=== PATIENT | female | born 1945 | race Hispanic/Latino ===

== ENCOUNTER 2018-02-04 11:00 | Emergency (ER) | payer OTHER ==
[~2018-02-04] VITALS: Ht 154.9 cm; Wt 60.8 kg
--- OUTSIDE RECORDS SUMMARY | 2018-02-04 11:02 | XMS REPORT | Clinical Summary ---
Author Author [facility] Address Unknown Phone Unavailable Care Team Providers Care Label Rewinder Name Role Phone Asked, None Given PCP Unavailable Allergies No Known Allergies Medications End Date Status Medication Sig Dispensed Refills Start Date Active losartan-hydrochlorothiaz Take 1 tablet 0 vick (HYZAAR) 100-12.5 mg by mouth per tablet daily. Active atenolol (TENORMIN) 100 Take 100 mg 0 MG tablet by mouth daily. Active ondansetron ODT (ZOFRAN Take 1 tablet 12 tablet 0 ODT) 4 MG disintegrating (4 mg total) 6 tablet by mouth every 8 (eight) hours as needed for nausea or vomiting for up to 12 doses. Active Problems Not on file Social History Date Tobacco Use Types Packs/Day Years Used Never Smoker Alcohol Use Drinks/Week oz/Week Comments No Sex Assigned at Date Recorded Not on file Industry Job Start Date Occupation Not on file Not on file Not on file Travel End Travel History Travel Start No recent travel history available. Last Filed Vital Signs Not on file Plan of Treatment Health Maintenance Due Date Last Done Comments BREAST CANCER SCREENING 1996 COLON CANCER SCREENING 1996 SHINGRIX VACCINE (1 of 2) 1996 ZOSTER VACCINE 2006 PNEUMOCOCCAL 12/17/2011 POLYSACCHARIDE VACCINE AGE 65 AND OVER PNEUMOCOCCAL-13 12/17/2011 INFLUENZA VACCINE 10/05/2017 Results Not on fileafter 02/03/2017 Insurance Payer Benefit Subscriber ID Type Phone Address Plan / Group [facility] MEDICARE AARP xxxxxxxxx [facility] COM[facility]TE MCR (Home) [place] [address] Advance Directives Patient has advance care planning documents on file. For more information, padma mcdowell contact: Glenn Joe [address] [place] [address]
== END 2018-02-04 13:50 | disposition home or self-care (01) ==
LOC: FSED 11:00
DX: R21 Rash and other nonspecific skin eruption (principal); I10 Essential (primary) hypertension; D64.9 Anemia, unspecified
CPT/HCPCS: 99283

== ENCOUNTER 2018-10-24 15:02 | Emergency (ER) | payer MEDICARE, OTHER ==
[~2018-10-24] VITALS: Ht 154.9 cm; Wt 60.5 kg
--- OUTSIDE RECORDS SUMMARY | 2018-10-24 15:05 | XMS REPORT ---
Author Author [facility] Address Unknown Phone Unavailable Care Team Providers Care Metal Caster Name Role Phone Unavailable Unavailable Problems This patient has no known problems. Allergies, Adverse Reactions, Alerts This patient has no known allergies or adverse reactions. Medications This patient has no known medications.
--- OUTSIDE RECORDS SUMMARY | 2018-10-24 15:05 | XMS REPORT | Clinical Summary ---
Author Author [facility] Address Unknown Phone Unavailable Care Team Providers Care Automobile Accessories Salesperson Name Role Phone Graham Jacobson MD PCP Allergies No Known Allergies Medications End Date [...] 12 doses. 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 Last Filed Vital Signs Not on file Plan of Treatment Health Maintenance Due Date Last Done Comments BREAST CANCER SCREENING 1996 COLONOSCOPY SCREENING 1996 SHINGLES VACCINES (#1) 1996 65+ PNEUMOCOCCAL VACCINE 12/17/2011 (1 of 2 - PCV13) INFLUENZA VACCINE 10/05/2018 Procedures Comments Procedure Name Priority Date/Time Associated Diagnosis MRI BRAIN WO CONTRAST Routine 02/24/2018 Cerebral infarction due 2:35 PM KNOCKUP WORKER to thrombosis of vertebral artery, unspecified blood vessel laterality (HCC) ECHOCARDIOGRAM 2D Routine 02/24/2018 Cerebral infarction due COMPLETE W MMODE SPECTRAL 2:10 PM KNOCKUP WORKER to thrombosis of COLOR DOPPLER (29004) vertebral artery, unspecified blood vessel laterality (HCC) after 10/23/2017 Results * MRI Brain Wo Contrast (02/24/2018 2:35 PM KNOCKUP WORKER) Specimen Narrative Performed At [facility] EXAMINATION:MRI BRAIN WO CONTRAST CLINICAL HISTORY:I63.019 Cerebral infarction due to thrombosis of unspecified vertebral artery, I63.019 COMPARISON:CT of the head dated August 07, 2015 TECHNIQUE: Multiplanar MRI imaging without IV Gadolinium was performed. FINDINGS: There is generalized brain parenchymal atrophy with white matter nonspecific T2 hyperintensities most likely to represent microvascular chronic ischemic disease. There is slight nonspecific ventriculomegaly most likely related tocentral volume loss. There is incidental punctate focus of susceptibility in the right frontal white matter most likely related to small cavernous formation versus small dystrophic ossification. There is no evidence of acute infarction, hemorrhage, mass lesion, or midline shift. Ventricles, sulci, and cisterns are age-appropriate in size and configuration. There is no extra-axial fluid collection. Flow voids of the major intracranial vessels are intact. Visualized paranasal sinuses and mastoid air cells are clear. Bones, orbits, and soft tissues are unremarkable. IMPRESSION: No acute intracranial abnormality. [id number] Procedure Note Interface, Radiology Results Incoming - 02/24/2018 3:26 PM KNOCKUP WORKER EXAMINATION: MRI BRAIN WO CONTRAST CLINICAL HISTORY: I63.019 Cerebral infarction due to thrombosis of unspecified vertebral artery, I63.019 COMPARISON: CT of the head dated August 07, 2015 TECHNIQUE: Multiplanar MRI imaging without IV Gadolinium was performed. FINDINGS: There is generalized brain parenchymal atrophy with white matter nonspecific T2 hyperintensities most likely to represent microvascular chronic ischemic disease. There is slight nonspecific ventriculomegaly most likely related to central volume loss. There is incidental punctate focus of susceptibility in the right frontal white matter most likely related to small cavernous formation versus small dystrophic ossification. There is no evidence of acute infarction, hemorrhage, mass lesion, or midline shift. Ventricles, sulci, and cisterns are age-appropriate in size and configuration. There is no extra-axial fluid collection. Flow voids of the major intracranial vessels are intact. Visualized paranasal sinuses and mastoid air cells are clear. Bones, orbits, and soft tissues are unremarkable. IMPRESSION: No acute intracranial abnormality. [id number] Performing Organization Address City/State/Zipcode Phone Number [facility] [address] [place] [address] * Echocardiogram complete w contrast and 3D if needed (02/24/2018 2:10 PM KNOCKUP WORKER) Specimen Narrative Performed At [facility] Echocardiography Report [address] [place] [address] Pat.Name:FELIZ OSULLIVAN.ID:[id number] .Date: 02/24/2018Refer.MD:JOHANN GARZA Exam Time: 1:19:00 PMStudy Type:Routine Echo Height:61inWeight:138lb BSA: 1.61 m2 DOBAge:1945,72Y Sex: FEMALEBP:168/73 HR:50 bpm Sonogrphr: Mandi Lima RDCS, RVT; Lucero Mcginnis (student) Pat. 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 LV EF is normal. FINDINGS: LV: LV size is normal. LV EF is normal. Overall wall motion is normal.Estimated EF is 60-64%. RV: RV size is normal. RV systolic function is normal. LA: LA size is normal. RA: RA size is normal. AO: Aortic root diameter is normal. CHRISTO: No pericardial effusion. AV: Mild thickening and calcification of AV leaflets. MV: No structural MV abnormalities noted. Mild mitral regurgitation. PV: No structural PV abnormalities noted. A trace of pulmonic regurgitation. TV: No structural TV abnormalities noted. Mild tricuspid regurgitation Adkins: Normal diastolic function. Other:Estimated PA systolic pressure is 30 mmHg, assuming a mean RAPof 5 mmHg. MEASUREMENTS: 2D Parasternal Long [place] LVOT 1.7 cmLA Ds3.5 cm LVIDd5.4 cmIndex3.3 cm/m Ao An1.8 cm LVIDs2.9 cmAo Rtd 2.9 cm Index1.8 cm/m LV%fs 46.4 % LV Rafa447.5 g(87-129) IVSd 0.7 cmLVM Index 91.6 g/m2 LVPWd0.8 cmRWT0.3 LA Sng Plane LA Area 17 cm2(8.8-23.4) LA Vol44.7 ml Index27.8 ml/m LA LngAx 5.5 cm RA Sng Plane RA Area 18.3 cm2(8.3-19.5) RA Vol51.9 ml Index32.2 ml/m RA LngAx 5.1 cm DOPPLER LVOT Stroke Vol LVOT 1.7 cmLVOT CO3 l/min LVOT TVI28.5 cmLVOT CI1.9 l/m/m2 LVOT Tm372 csujOS17 bpm LVOT SV 64.8 ml Signed 02/25/2018 09:33 AM Lee Lewis MD Procedure Note Interface, Radiology Results In - 02/25/2018 9:34 AM KNOCKUP WORKER Echocardiography Report [address] [place] [address] Pat.Name: FELIZ OSULLIVAN Pat.ID: [id number] .Date: 02/24/2018 Refer.MD: JOHANN GARZA Exam Time: 1:19:00 PM Study Type:Routine Echo Height: 61in Weight: 138lb BSA: 1.61 m2 Age: 11 1945,72Y Sex: FEMALE BP: 168/73 HR: 50 bpm Sonogrphr: Mandi Lima RDCS, RVT; Lucero Mcginnis (student) Pat. 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 LV EF is normal. FINDINGS: LV: LV size is normal. LV EF is normal. Overall wall motion is normal. Estimated EF is 60-64%. RV: RV size is normal. RV systolic function is normal. LA: LA size is normal. RA: RA size is normal. AO: Aortic root diameter is normal. CHRISTO: No pericardial effusion. AV: Mild thickening and calcification of AV leaflets. MV: No structural MV abnormalities noted. Mild mitral regurgitation. PV: No structural PV abnormalities noted. A trace of pulmonic regurgitation. TV: No structural TV abnormalities noted. Mild tricuspid regurgitation Adkins: Normal diastolic function. Other: Estimated PA systolic pressure is 30 mmHg, assuming a mean RAP of 5 mmHg. MEASUREMENTS: 2D Parasternal Long [place] LVOT 1.7 cm LA Ds 3.5 cm LVIDd 5.4 cm Index 3.3 cm/m Ao An 1.8 cm LVIDs 2.9 cm Ao Rtd 2.9 cm Index 1.8 cm/m LV%fs 46.4 % LV Mass 147.5 g (87-129) IVSd 0.7 cm LVM Index 91.6 g/m2 LVPWd 0.8 cm RWT 0.3 LA Sng Plane LA Area 17 cm2 (8.8-23.4) LA Vol 44.7 ml Index 27.8 ml/m LA LngAx 5.5 cm RA Sng Plane RA Area 18.3 cm2 (8.3-19.5) RA Vol 51.9 ml Index 32.2 ml/m RA LngAx 5.1 cm DOPPLER LVOT Stroke Vol LVOT 1.7 cm LVOT CO 3 l/min LVOT TVI 28.5 cm LVOT CI 1.9 l/m/m2 LVOT Tm 372 msec HR 47 bpm LVOT SV 64.8 ml Signed 02/25/2018 09:33 AM Lee Lewis MD Performing Organization Address City/State[facility] Phone Number [facility] [address] [place] [address] after 10/23/2017 Insurance Type Payer Benefit Subscriber ID Effective Phone Address Plan / Dates Group O [employer] xxxxxxxxx 2017-Christine lloyd Advance Directives For more information, please contact: [phone] Worker Explanation Type Date Recorded Advance Directives, Living Will and Medical Power of Tools Administrator
[2018-10-24] MEDS ORDERED: SODIUM CHLORIDE 0.9% 50ML 50 ML ONE (15:24)
[2018-10-24] MEDS ORDERED: IOPAMIDOL 370 MG/ML 200 ML INFUS..BTL INJ ONE (15:25)
[2018-10-24] MEDS ORDERED: SODIUM CHLORIDE 0.9% 1000ML 1,000 ML IV SCH ×2 (15:30→18:49)
[2018-10-24] MEDS ORDERED: SODIUM CHLORIDE 0.9% 1000ML 1,000 ML ONE (15:49)
[2018-10-24] MEDS ORDERED: ATENOLOL100 MG (15:50)
[2018-10-24] MEDS ORDERED: LOSARTAN POTAS100 MG PO (15:50)
--- NOTE | 2018-10-24 17:00 | Diagnostic Imaging Report ---
CT of the abdomen and pelvis, with contrast, 10/24/2018. History: Lower abdominal pain. Comparison: None available. Technique: Multidetector CT scanning of the abdomen and pelvis was performed from the level of the lung bases to the inferior pubic rami after intravenous administration of contrast. Coronal and sagittal multiplanar reformations were obtained. RADIATION DOSE: Total DLP: 613 mGy*cm Dose modulation, iterative reconstruction, and/or weight based adjustment of the mA/kV was utilized to reduce the radiation dose to as low as reasonably achievable. Discussion: LUNG BASES: There is bilateral atelectasis. ABDOMEN: There is diffuse thickening of the gallbladder wall. A 10 mm round hypodensity is seen just medial to the gallbladder. The liver, biliary tree, spleen, pancreas, adrenal glands, and kidneys are normal. The hepatic vein, portal vein, and splenic vein are patent. The abdominal aorta is within normal limits for size. Evaluation of bowel is limited without oral contrast. There is no bowel dilatation. The appendix is visualized and is normal. Multiple diverticuli are seen within the sigmoid colon without evidence of adjacent inflammation. There is no evidence of adenopathy or free fluid. A ventral hernia is present containing a portion of the transverse colon. There is no bowel wall thickening or proximal bowel dilatation. PELVIS: The bladder is unremarkable. The uterus and adnexa are absent. There is no evidence of free fluid or adenopathy. BONES AND SOFT TISSUES: Degenerative changes are present throughout the lumbar spine without evidence of lytic or sclerotic lesion. IMPRESSION: 1. Gallbladder wall thickening with adjacent medial hyperdensity which may represent a stone in the region of the gallbladder neck. Recommend further evaluation with right upper quadrant ultrasound. 2. Colonic diverticulosis without evidence of diverticulitis. 3. Colon containing ventral hernia without evidence of bowel strangulation or obstruction. 4. Status post hysterectomy. Signed by: Shree Hensley on 10/24/2018 4:56 PM
[2018-10-24] MEDS ORDERED: ACETAMINOPHEN 325 MG TAB PO ONE ×2 (17:30)
--- NOTE | 2018-10-24 18:31 | Diagnostic Imaging Report ---
HISTORY: Abdominal pain ^[id number] ^1821 TECHNIQUE: Selected images from limited abdominal ultrasound provided for INTERPRETATION: COMPARISON: CT abdomen 1557 hours. FINDINGS: Pancreas: Not visualized due to bowel gas. Liver: Measures 13.9 cm in sagittal plane. The echotexture is increased. No mass in the visualized portions. Portal Vein: Measures 1.0 cm. Proper directional flow on spectral Doppler interrogation. Biliary Tree: Normal Gallbladder: Present and contains multiple gallstones. There is a gallstone in the neck measuring 2.9 cm and a gallstone in the fundus measuring 3.8 cm. There is no change in position of the gallstone in the neck on decubitus imaging. The gallbladder wall measures 4 mm. There is diffuse pericholecystic fluid. Sonographic Ventura sign is negative. CBD: 0.5 cm. Right Kidney: 9.4 cm in greatest length. The echotexture is normal. There is no evidence for mass. There is no collecting system dilatation or evidence of obstruction. No renal calculi evident. No adjacent free fluid or fluid collections. Visualized IVC and aorta are normal. There is no free fluid. IMPRESSION: 1. Cholelithiasis with impacted gallstone in the neck. Gallbladder wall thickening and pericholecystic fluid are suggestive of acute cholecystitis. No biliary ductal dilatation. 2. Steatosis. 3. Nonvisualization of the pancreas. Signed by: Dr. Melody Rodriguez MD on 10/24/2018 6:28 PM
[2018-10-24] MEDS ORDERED: MORPHINE SULFATE 2 MG/ML SYR 1ML IV PRN (19:00)
[2018-10-24] MEDS ORDERED: ONDANSETRON HCL INJ 2MG/ML 2ML 2 MG/ML VIAL IV PRN (19:00)
[2018-10-24] MEDS ORDERED: PIPER-TAZ 3.375 GM 50 ML IV SCH (19:00)
[2018-10-24] MEDS ORDERED: MORPHINE SULFATE INJ 4 MG/ML INJ 1ML IV PRN (19:15)
[2018-10-24] MEDS ORDERED: PIPER-TAZ 3.375 GM 50 ML ONE (19:36)
--- NOTE | 2018-10-24 20:27 | NUR ---
PT DECIDED TO FOLLOW UP WITH PRIMARY DOCTOR IN AM, SIGNED AMA FORMS, DAUGHTER WITNESSED TO SIGNING, IV REMOVED AND INTACT, PRESSURE SRESSING APPLIED, PT AMBULATED OUT OF ER IN STABLE CONDITION,
== END 2018-10-24 20:15 | disposition left against medical advice (07) ==
LOC: FSED 15:02
DX: K80.01 Calculus of gallbladder with acute cholecystitis with obstruction (principal); I10 Essential (primary) hypertension
CPT/HCPCS: 74177; 76705; 80053; 81003; 82553; 84484; 85025; 99284; J2543; J7030; Q9967